=== PATIENT | male | born 1980 | race Caucasian/White ===

== ENCOUNTER 2023-11-16 19:24 | Observation (INO) | payer OTHER, SELFPAY ==
[2023-11-16] VITALS (18 sets, daily range): BP systolic 148–227; BP diastolic 107–162; PULSE 84–124; RESP 15–22; TEMP 36.5–36.9; O2SAT 96–100; BMI 25.9
--- NOTE | 2023-11-16 19:52 | CT_ITS ---
STUDY: CT BRAIN WITHOUT CONTRAST REASON FOR EXAM: Male, 43 years old. headache with elevated bp RADIATION DOSAGE (If Supplied By Facility): CTDIvol = ( 44.99 ) mGy, DLP = ( 914.22 ) mGycm TECHNIQUE: Transaxial CT imaging of the brain was performed without administration of intravenous contrast material. Individualized dose optimization techniques were used for this CT. COMPARISON: No relevant priors. FINDINGS: Normal soft tissue structures. Normal calvarium. Normal size ventricles and extra-axial spaces for the patient''s age. Small areas of slight decreased attenuation along the subcortical white matter at the sylvian fissure junction with external capsule most compatible with microangiopathic disease. Otherwise unremarkable white matter tracts of the cerebral hemispheres. Normal basal ganglia and thalami. Normal brainstem. Normal cerebellum. There is no intracranial hemorrhage. There are no findings of an acute ischemic infarction. Normal visualized paranasal sinuses. CT/Brain/Head without Contrast IMPRESSION: Minor microangiopathic white matter changes, otherwise normal CT brain. Electronically Signed: Christie Camacho MD at 20:43 EST ,
--- NOTE | 2023-11-16 19:56 | EX.ED.VIS.HA ---
HPI History of Present Illness Chief Complaint: Headache Detail of Chief Complaint: Elevated blood pressure. Nausea and vomiting. Informant: patient and spouse/S.O. Onset/Context/Timing Onset: Today and Month(s) Context: Gradual Timing: Intermittent Quality -Headache: Positive for Similar Prior Headaches Current Severity: Moderate Maximum Severity: Moderate Associated Symptoms/Injury Associated Symptoms: Positive for Nausea and Vomiting; Negative for Fever, Sinus Pressure, Numbness, Tingling, Blurred Vision, Photophobia or Visual Loss Injury - ASTORGA: Negative for Direct Trauma, Fall or Assault Narrative Narrative: 43-year-old male has been having headaches for the last 3+ years. Headaches have progressively been getting worse and more frequent or about twice a week now. He has never been told he had hypertension. Today around 630 he had one of his more severe headaches with associated nausea and vomiting and his said he just seems like he was out of it. No recent head trauma. They were treating him over the last several years for postconcussive headaches. He is currently on no medications. He has no other significant medical history. He is on no blood thinners. Prior similar symptoms: Yes Recent Illness/Hospitalization: No PFSH PFSH Medical History Migraine Home Medications NK 11/16/23 [History Last Taken Unknown] Allergy/AdvReac Type Severity Reaction Status Date / Time amoxicillin AdvReac Upset Verified 11/16/23 19:26 Stomach doxycycline AdvReac Upset Verified 11/16/23 19:26 Stomach Surgical History H/O rhinoplasty [place] teeth extracted Social History Smoking Status: Never smoker ROS ROS ED ROS Narrative Headache. Nausea and vomiting. No fever. Review of Systems ROS Unobtainable: Denies due to encephalopathy Constitutional Constitutional ED: Denies chills or fever(s) Eyes Eyes: Denies blurry vision ENT ENT ED: Denies ear pain Cardiovascular Cardiovascular: Denies chest pain or palpitations Respiratory/Chest Respiratory/Chest: Denies cough or dyspnea Gastrointestinal Gastrointestinal: Denies abdominal pain Genitourinary Genitourinary ED: Denies dysuria or hematuria Musculoskeletal Musculoskeletal: Denies arthralgias, back pain, myalgias or neck pain Integumentary Denies abscess or Abrasions Neurologic Neurologic: Reports headache(s); Denies paresthesias or weakness Psychiatric Psychiatric: Denies anxiety or depression Endocrine Endocrinology: Denies polydipsia, polyphagia or polyuria Hematologic/Lymphatic Hematologic/Lymphatic: Denies easy bleeding, easy bruising or lymphadenopathy Allergic/Immunologic Allergic/Immunologic ED: Denies mouth swelling, tongue swelling or urticaria EXAM Physical Exam Narrative Exam Narrative: 43-year-old male initial blood pressure is elevated 227/162. present in the room. H EENT exam pupils round react to light. His motions are intact. No signs of trauma. Neck nontender no meningismus. Able to touch chin to chest. Lungs clear to auscultation bilaterally. Heart regular rhythm rate about 110 no murmur. Chest wall nontender. Abdomen soft nontender. Moving all 4 extremities. Calves are nontender without edema or cords. Neurologically patient is awake and alert. No focal motor deficits. Answering questions following commands. Normal speech. No facial droop. 5 out of 5 blast setter strength. Dorsi plantarflexion intact. Fingertip to nose within normal limits. NIH is 0. Const Vital Signs: 11/16/23 19:27 11/16/23 19:30 11/16/23 19:55 Temperature 97.7 F L Temperature Source Temporal Pulse Rate 124 H Respiratory Rate 16 Blood Pressure 227/162 H 222/156 H Blood Pressure Mean 183 178 Blood Pressure Source Pulse Ox 100 Oxygen Delivery Method Room Air 11/16/23 20:01 11/16/23 21:01 11/16/23 21:18 Temperature Temperature Source Pulse Rate 90 89 Respiratory Rate 18 Blood Pressure 220/151 H 208/146 H 207/144 H Blood Pressure Mean 174 166 165 Blood Pressure Source Monitor Pulse Ox Oxygen Delivery Method 11/16/23 21:23 11/16/23 21:28 Temperature Temperature Source Pulse Rate Respiratory Rate Blood Pressure 202/131 H 194/122 H Blood Pressure Mean 154 146 Blood Pressure Source Monitor Monitor Pulse Ox Oxygen Delivery Method Positive well nourished and well developed; Negative for obese, cachectic, contractures or unkempt General Appearance ED: well developed and NAD; Negative for unkempt, cachectic, contractures, cyanotic, diaphoretic or pallor Nutritional Appearance: Negative for cachectic or obese HEENT Reports normocephalic and moist mucous membranes; Denies dry mucous membranes atraumatic; Negative for trauma, tenderness, temporal artery tenderness or vesicular rash Face and Sinus: Negative for sinus tenderness Mouth ED: No dry mucous membranes Mouth: No dry mucous membranes Eyes PERRL and EOMs intact bilaterally General Eye ED: Negative for pale conjunctiva, scleral icterus or other Neck no lymphadenopathy, supple, no meningeal signs and no JVD General: Negative for tenderness Resp normal respiratory effort and clear to auscultation bilaterally Effort and Inspection: Negative for retractions Auscultation: Negative for rales, rhonchi or wheezes Cardio regular rate, regular rhythm, S1 normal heart sound, S2 normal heart sound and no murmurs Rate: Negative for bradycardia or tachycardic Rhythm: Negative for abnormal rhythm GI non-tender and non-distended Auscultation: normoactive bowel sounds Palpation: soft; Negative for firm, tender, guarding, rigid, hepatomegaly, splenomegaly, mass or other Back/Spine no CVA tenderness General Back: Negative for CVA tenderness Cervical Spine: Negative for cervical spine tenderness Thoracic Spine / Upper Back: Negative for thoracic spinal tenderness Lumbar Spine / Lower Back: Negative for lumbar spinal tenderness Extremity normal to inspection, full ROM and normal capillary refill General Extremety ED: Negative for edema, tenderness or other findings General Extremity: Negative for edema or other findings Neuro oriented x3, CN's II-XII intact bilaterally and no sensory deficits noted Sensorium / Orientation: awake, alert, oriented to person, oriented to place and oriented to time; Negative for orientation impaired, lethargic or stuporous Coordination / Balance: [id number] test normal Speech: speech normal Motor Exam: strength 5/5 throughout Psych mental status grossly normal Appearance: Negative for unkempt Attitude: No agitated Mood & Affect: Negative for depressed, anxious or tearful Skin General Skin Exam: elasticity normal; Negative for jaundice or pallor Lesions: no lesions Rashes: no rashes Trauma: Negative for abrasion MDM MDM MDM Narrative Medical decision making narrative: 41-year-old male with frequent and progressively worsening headaches over the last 3 years. Today he had an episode of mental status change briefly with nausea and vomiting. CAT scan of his brain screening labs to be obtained. His blood pressure was significantly elevated at 227 / 162 that will be rechecked if it is not coming down we will start him on antihypertensive medications. Patient was given Lopressor IV x 3 without any significant relief to his blood pressure. He was started on nitroprusside drip which is starting to bring his blood pressure down when I spoke to the hospitalist about admission for hypertensive urgency she preferred to be on a nicardipine drip so the drip will be changed. Patient be admitted to the PCU. I discussed his test results with both he and his significant other. History & Record Review Discussion w/independent historian: Patient Additional record(s) reviewed:: No prior records Lab Data Attestation: I reviewed the patient's lab results. Lab results narrative: CBC shows a white count of 14. H&H 15 and 45. Platelets 334. Electrolytes show a gap of 7. BUN of 20 creatinine 1.2. Glucose 142. Troponin 22. Labs: Laboratory Results - last 24 hr 11/16/23 19:50 WBC 14.2 H RBC 5.26 Hgb 15.9 Hct 45.9 MCV 87.3 MCH 30.2 MCHC 34.6 RDW Std Deviation 39.2 RDW Coeff of Alvin 12.3 Plt Count 334 MPV 10.2 Immature Gran % (Auto) 0.400 Neut % (Auto) 88.8 H Lymph % (Auto) 7.1 L [place] % (Auto) 3.5 Eos % (Auto) 0.0 Baso % (Auto) 0.2 Absolute Neuts (auto) 12.6 H Absolute Lymphs (auto) 1.00 Nucleated RBC % 0 Sodium 139 Potassium 4.0 Chloride 107 Carbon Dioxide 25.0 Anion Gap 7 BUN 20 H Creatinine 1.25 Estim Creat Clear Calc 81.99 Est GFR (MDRD) Af Amer 81 Est GFR (MDRD) Non-Af 67 BUN/Creatinine Ratio 16.0 Glucose 142 H Calcium 9.5 Troponin I High Sens 22 Radiography Chest X-Ray - ED: 1 View, Read by ED Physician, Read by Radiologist, Heart, Lungs, Mediastinum, Bony Structures and No Acute Disease Diagnostic Testing: Clinical Impression(s) from Imaging Studies Brain CT 11/16/23 19:52 IMPRESSION: Minor microangiopathic white matter changes, otherwise normal CT brain. Electronically Signed: Christie Camacho MD at 20:43 EST , Chest X-Ray 11/16/23 20:13 IMPRESSION: Trace right basilar atelectasis. Otherwise normal x-ray examination of the chest. Electronically Signed: Christie Camacho MD at 20:40 EST Reading Location ID and State: [facility] / [place] , Service support , Chest x-ray, portable, single view interpreted by myself and radiologist shows no acute abnormality. Normal cardiac silhouette mediastinum. Normal lung quinones. Rhythm Strip Rhythm Strip: Sinus Tach Rate: 112 Ectopy: None EKG Initial EKG: Attestation: I personally reviewed and interpreted this EKG as follows: Interpretation: Sinus Tachycardia Comments: Sinus tachycardia rate of 112 no acute signs of KS or ischemia. No ST elevation or depression. Prior EKG tracings: not available for review Discharge Plan Triage Chief Complaint: Headache ED Provider: Efrain Sanchez Dx/Rx/DC Orders Clinical Impression: Hypertensive urgency, Headache Prescriptions: No Action NK Primary Care Provider: Care Physician,No Primary Referrals: NOT,DEFINED [Non-Staff] - Disposition Disposition: Acute Care Hospital [facility]
[2023-11-16 19:59] LABS: Absolute Neutrophil Count 12.6 X10^3/uL (2.0-7.7); Basophil# 0.03 X10^3/uL; Basophil% 0.2 % (0-1); Hematocrit 45.9 % (40-54); Hemoglobin 15.9 g/dL (13.0-16.5); Lymphocyte % 7.1 % (19-41); Mean Corp Hgb Conc 34.6 g/dL (32-36); Mean Corpuscular Hgb 30.2 pg (27.0-32.0); Mean Corpuscular Volume 87.3 fL (80-94); Mean Platelet Vol. 10.2 fl (6.2-12.0); Monocyte% 3.5 % (0-10); NRBC Flagged by Analyzer 0 % (0-5); Neutrophil % 88.8 % (47-70); Platelet Count 334 K/mm3 (150-450); RBC Distribution Width CV 12.3 % (11.6-14.6); RBC Distribution Width SD 39.2 fl (35.1-43.9); Red Blood Count 5.26 M/mm3 (4.6-6.2); White Blood Count 14.2 K/mm3 (4.4-11.0)
[2023-11-16] MEDS: Ondansetron 4 MG/2 ML Vial IV (20:00)
--- NOTE | 2023-11-16 20:13 | RAD_ITS ---
STUDY: X-RAY CHEST REASON FOR EXAM: Male, 43 years old. chest pain TECHNIQUE: Single AP portable view of the chest. COMPARISON: None. FINDINGS: Possible trace right basilar atelectasis. Otherwise the lungs are clear and expanded. There is no demonstrated pleural abnormality. Normal size heart. Normal mediastinum and aishwarya. Normal visualized pulmonary arteries. Normal visualized aortic arch and descending thoracic aorta. Normal visualized thoracic spine. Normal visualized ribs, clavicles, and shoulders. There is no demonstrated abnormality of the visualized soft tissue structures of the upper abdomen. RAD/Chest 1 View (Portable) IMPRESSION: Trace right basilar atelectasis. Otherwise normal x-ray examination of the chest. Electronically Signed: Christie Camacho MD at 20:40 EST ,
[2023-11-16 20:18] LABS: Anion Gap 7 (5-15); BUN 20 mg/dL (7-18); Calcium,Total 9.5 mg/dL (8.5-10.1); Chloride 107 mmol/L (98-107); Creatinine, Serum 1.25 mg/dL (0.70-1.30); EST Glomerular Filtration Rate 67 mL/min (>60); Est Glom Filt Rate - Afr Amer 81 mL/min (>60); Estimated Creatinine Clearance 81.99 ml/min; Glucose 142 mg/dL (74-106); Sodium Level 139 mmol/L (136-145); Troponin-I HS (w/2H Reflex) 22 pg/mL (3.0-78.0)
[2023-11-16] MEDS: Metoprolol Tartrate 5 MG/5 ML Vial IV ×3 (20:29→21:02)
[2023-11-16] MEDS: Nitroprusside 50 MG in Dextrose 5%-Water (250mL Bag) 248 ML 7.6 MG CONT INF (21:18)
--- NOTE | 2023-11-16 21:41 | ED.RN ---
per Dr Sanchez Hospitalist Dr. Philly Burnett wants sbp 180's and switch to Cardene. Will hold Nitroprusside once Nicardipine available.
[2023-11-16 21:56] LABS: Reflex Troponin-HS? (from REC) Y
[2023-11-16 22:24] LABS: Troponin-I HS 23 pg/mL (3.0-78.0)
[2023-11-16] MEDS: NICARdipine 25 MG in 0.9% Normal Saline (250mL Bag) 240 ML 50 MG CONT INF (22:25)
[2023-11-16 22:28] LABS: Thyroid Stim Hormone (TSH) 0.81 uIU/mL (0.358-3.74)
--- NOTE | 2023-11-16 22:36 | ED.RN ---
2225 maheshride dcd prior to starting cardene.
--- NOTE | 2023-11-16 23:13 | PCM.HP.STD ---
HPI - General General Date of Admission: 11/16/23 Date of Service: 11/17/23 Chief Complaint: Headache HPI Narrative ZOEY MAE, is a 43 M who presented to the emergency department at [facility] with a severe headache. Patient states he has a history of migraines but had not had issues with this in a long time. It sounds like he also has a history of exercise-induced headaches when he was young and playing sports. He had about 5 concussions when he was young from sports and initially attributed his headaches to this. He stated the headaches that he is currently suffering from started in about 2019 and initially he was having them about twice a month but they have become more frequent and he is currently having them 2-3 times a week. He states often they occur on the weekends and midweek on Tuesday. He states they are located on the top of his head and they are sharp and stabbing in nature. He rates the pain as high as 9 out of 10 at times and that is what it was on presentation. He states that exercise still will precipitate a headache that is the same. He has associated nausea and vomiting and states that often when he gets headaches he has multiple bowel movements that are normal in formation. He states he came to the hospital today because he had some shaking that occurred diffusely throughout his body while he was having a headache. It sounds as if the shaking was rhythmic bilateral upper and lower extremities and witnessed by his . He reported that his told him that he did not respond with this happened however he was able to get the shaking to stop and then was fully responsive. He had no biting of his tongue, loss of bowel or bladder or any signs of postictal state. He currently states his headache is better since we have improved control of his blood pressure and now rates his headache as 3 out of 10. We did discuss his blood pressure as an outpatient and he states typically his systolics run in the 120s. 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 He denies any substance use. He states that the headaches do not particularly seem to be associated with any alcohol use in fact he tried not drinking for an entire month and he was still getting headaches fairly consistently. Vital signs on presentation demonstrated temperature of 97.7, initial heart rate was 124 with repeat at 90 bpm, blood pressure was 127/162 and did not improve with IV metoprolol, respiratory was 16 oxygen saturations are 100% room air. CBC showed a mild leukocytosis with a white count of 14.2 and a left shift however he did appear somewhat dehydrated. Chemistry panel revealed normal electrolytes with a mildly elevated BUN at 20 and a serum creatinine of 1.25. Baseline is unknown. Blood glucose was 142 and he is not a diabetic but this was nonfasting. Initial troponin was 22. I obtained a TSH and a cortisol both of which were normal. A CT of his brain was performed and demonstrated minor microangiopathic white matter changes and an otherwise normal CT of the brain. Chest x-ray demonstrated trace right basilar atelectasis with an otherwise normal echo x-ray of the chest. EKG is consistent with LVH. Patient had sinus tachycardia with normal intervals and no ST-T wave changes. There were no previous EKGs to compare. As noted above, he was given IV metoprolol x 3 in the emergency department Without any significant improvement in his blood pressure and he was therefore started on a Cardene drip. [facility] Medical History Migraine Home Medications NK 11/16/23 [History Last Taken Unknown] Allergy/AdvReac Type Severity Reaction Status Date / Time amoxicillin AdvReac Upset Verified 11/16/23 19:26 Stomach doxycycline AdvReac Upset Verified 11/16/23 19:26 Stomach Family History (Updated 11/17/23 @ 01:[address] Inez Burnett DO) Other Diabetes Hypertension Surgical History H/O rhinoplasty Umpire teeth extracted Social History (Updated 11/17/23 @ 01:[address] Inez Burnett DO) household members: family housing: house current occupation: Chiropractor Smoking Status: Never smoker alcohol intake: current alcohol intake frequency: a few times a month substance use type: does not use ROS Constitutional Constitutional: Denies anorexia, change in weight, chills, fatigue, fever(s), malaise, night sweats, weakness or other Eyes Eyes: Reports blurry vision; Denies change in eye color, change in vision, discharge from eye(s), double vision, erythema, eye pain, loss of vision or other ENT HEENT: Reports headache(s); Denies abnormal hearing, dysphagia, ear pain, epistaxis, hearing loss, nasal congestion, nasal discharge, post nasal drip, sinus pressure, sore throat or other Cardiovascular Cardiovascular: Denies chest pain, claudication, dyspnea on exertion, edema, lightheadedness, orthopnea, palpitations, paroxysmal nocturnal dyspnea, rapid heart rate, syncope or other Respiratory/Chest Respiratory/Chest: Denies cough, dyspnea, excessive phlegm production, hemoptysis, productive cough, shortness of breath at rest, shortness of breath with exertion, wheezing or other Gastrointestinal Gastrointestinal: Reports nausea, vomiting and other Details: Frequent bowel movements when has headache but not diarrhea or loose stool ; Denies abdominal pain, coffee ground emesis, constipation, diarrhea, dyspepsia, hematemesis, hematochezia, loose stools or melena Genitourinary Genitourinary: Denies burning urination, difficulty urinating, dysuria, hematuria, nocturia, urinary frequency, urinary hesitancy, urinary incontinence, urinary urgency or other Neurologic Neurologic: Reports headache(s) and other Details: Full body shaking with complete awareness Endocrine Endocrinology: Denies change in body appearance, cold intolerance, excessive sweating, heat intolerance, polydipsia, polyuria or other Hematologic/Lymphatic Hematologic/Lymphatic: Denies anemia, easy bleeding, easy bruising, lymphadenopathy or other Allergic/Immunologic Allergic/Immunologic: Denies rhinitis, hives, eczemia, asthma or other Vital Signs Vital Signs Vital Signs: 11/16/23 19:27 11/16/23 19:30 11/16/23 19:55 Temperature 97.7 F L Temperature Source Temporal Pulse Rate 124 H Respiratory Rate 16 Blood Pressure 227/162 H 222/156 H Blood Pressure Mean 183 178 Blood Pressure Source Pulse Ox 100 Oxygen Delivery Method Room Air 11/16/23 20:01 11/16/23 21:01 11/16/23 21:18 Temperature Temperature Source Pulse Rate 90 89 Respiratory Rate 18 Blood Pressure 220/151 H 208/146 H 207/144 H Blood Pressure Mean 174 166 165 Blood Pressure Source Monitor Pulse Ox Oxygen Delivery Method 11/16/23 21:23 11/16/23 21:28 11/16/23 21:33 Temperature Temperature Source Pulse Rate Respiratory Rate Blood Pressure 202/131 H 194/122 H 181/133 H Blood Pressure Mean 154 146 149 Blood Pressure Source Monitor Monitor Monitor Pulse Ox Oxygen Delivery Method 11/16/23 21:38 11/16/23 21:42 11/16/23 21:43 Temperature 98.0 F Temperature Source Pulse Rate 89 88 Respiratory Rate 15 18 Blood Pressure 169/119 H 169/119 H 173/113 H Blood Pressure Mean 135 135 133 Blood Pressure Source Monitor Pulse Ox 98 96 Oxygen Delivery Method Room Air 11/16/23 22:06 11/16/23 22:25 11/16/23 22:30 Temperature 98.0 F Temperature Source Temporal Pulse Rate 99 84 89 Respiratory Rate 18 18 16 Blood Pressure 163/109 H 162/116 H 179/114 H Blood Pressure Mean 127 131 135 Blood Pressure Source Pulse Ox 96 Oxygen Delivery Method Room Air 11/16/23 22:35 11/16/23 23:01 Temperature Temperature Source Pulse Rate 89 100 Respiratory Rate 16 18 Blood Pressure 148/121 H 156/107 H Blood Pressure Mean 130 123 Blood Pressure Source Pulse Ox 98 Oxygen Delivery Method Room Air Weight Weight: 84.504 kg Body Mass Index (BMI) 25.9 Physical Exam Const alert, oriented x3, no apparent distress, average body habitus, healthy appearing and well nourished Constitutional Narrative: Very pleasant, middle-aged, white male, sitting up in bed, appears comfortable and nontoxic General Appearance: cooperative HEENT normocephalic, head/scalp atraumatic, hearing grossly normal bilaterally and moist oral mucous membranes HEENT Narrative: Mallampati 2, no thrush Eyes PERRL, EOMs intact bilaterally and conjunctivae normal Eyes Narrative: No scleral icterus Neck no lymphadenopathy and supple Neck Narrative: Trachea midline, no thyroid enlargement or nodularity noted Resp normal respiratory effort, no retractions, no use of accessory muscles and clear to auscultation bilaterally Auscultation: Negative for rales, rhonchi or wheezes Cardio regular rate, regular rhythm, S1 normal heart sound, S2 normal heart sound, no murmurs, no rub and no clicks; Negative for no gallops Cardio Narrative: Patient with positive S4 GI normal to inspection, nondistended, normoactive bowel sounds, soft to palpation and non-tender Extremity no clubbing, cyanosis or edema Extremity Narrative: Pedal pulses are 2+, radial pulses are 2+ Neuro oriented x3, moves all extremities and no focal motor deficits Speech: speech normal Psych affect normal Psych Narrative: Eye contact is good, patient interacts appropriately Results Lab / Micro Data Attestation: I reviewed the patient's lab results. 11/16/23 19:50 11/16/23 19:50 Labs: Laboratory Results - last 24 hr 11/16/23 19:50: WBC 14.2 H, RBC 5.26, Hgb 15.9, Hct 45.9, MCV 87.3, MCH 30.2, MCHC 34.6, RDW Std Deviation 39.2, RDW Coeff of Alvni 12.3, Plt Count 334, MPV 10.2, Immature Gran % (Auto) 0.400, Neut % (Auto) 88.8 H, Lymph % (Auto) 7.1 L, [place] % (Auto) 3.5, Eos % (Auto) 0.0, Baso % (Auto) 0.2, Absolute Neuts (auto) 12.6 H, Absolute Lymphs (auto) 1.00, Nucleated RBC % 0, Sodium 139, Potassium 4.0, Chloride 107, Carbon Dioxide 25.0, Anion Gap 7, BUN 20 H, Creatinine 1.25, Estim Creat Clear Calc 81.99, Est GFR (MDRD) Af Amer 81, Est GFR (MDRD) Non-Af 67, BUN/Creatinine Ratio 16.0, Glucose 142 H, Calcium 9.5, Troponin I High Sens 22, TSH 0.81 11/16/23 22:05: Troponin I High Sens 23 11/16/23 22:22: Cortisol 13.30 Rhythm Strip Rhythm Strip: Sinus Tach Rate: 112 Ectopy: None Imaging Radiology Impression Brain CT 11/16/23 19:52 IMPRESSION: Minor microangiopathic white matter changes, otherwise normal CT brain. Electronically Signed: Christie Camacho MD at 20:43 EST , Chest X-Ray 11/16/23 20:13 IMPRESSION: Trace right basilar atelectasis. Otherwise normal x-ray examination of the chest. Electronically Signed: Christie Camacho MD at 20:40 EST , Assessment & Plan Assessment/Plan (1) Headache: (2) Hypertensive urgency: (3) Leukocytosis: (4) Hyperglycemia: PLAN: Plan Severe headache -Patient has been having significant headaches that have slowly been progressing and escalating since 2019 -Has associated nausea and vomiting and multiple bowel movements -Associated with a shaking episode today -Check EEG -Patient reports headache was 9 out of 10 on presentation and now 3 out of 10 -Check MRI with and without contrast of the brain -Check MRA of the brain -As needed Tylenol available -Will consult neurology for assistance with these as they have been escalating -Unsure if his blood pressure elevation is due to his headaches or have his headaches are related to his blood pressure elevation Hypertensive urgency -Blood pressure on presentation was 227/162 -Cardene drip was initiated the emergency department-will continue with a goal blood pressure of around 180-200 through the night -At 6 AM we will start losartan 50 mg and stop Cardene drip 30 minutes later to maintain blood pressure systolic around 180 -Unclear if this is the cause of his headache however his headache is improved currently with improved blood pressure control -TSH and cortisol are normal -Check echocardiogram -No significant family history of resistant hypertension or otherwise -UA is pending -Imaging as above -Will add as needed hydralazine to be utilized after Cardene drip is discontinued -To begin for systolic greater than 190 -Check tox screen Hyperglycemia -Blood sugar 140 on presentation -Check hemoglobin A1c Leukocytosis -Highly suspect reactive and may be related to a bit of dehydration -Repeat CBC in a.m. DVT prophylaxis -Enoxaparin subcu daily CODE STATUS Full code Charges/Coding Visit Charges Inpatient E&M: 15888 Init Hosp L2
--- NOTE | 2023-11-16 23:17 | ED.RN ---
report called to Margarita Jeffries.
[2023-11-17] VITALS (34 sets, daily range): BP systolic 128–180; BP diastolic 89–118; PULSE 70–108; RESP 13–20; TEMP 36.6–36.9; O2SAT 95–100; BMI 25.9
[2023-11-17 00:54] LABS: Bacteria 0 SEEN /hpf (None Seen); Mucous, Urine 0 SEEN /hpf (<or=2+); Red Blood Cells-Urine 0 SEEN /hpf (0-5); Squamous Epithelial Cells - UA 0 SEEN /hpf (0-5); White Blood Cells 0 SEEN /hpf (0-5)
[2023-11-17 01:00] LABS: Color, Urine Yellow (Yellow); Glucose, Dipstick Normal (Normal); Ketone-Dipstick 15 mg/dl (Negative); Leukocyte Esterase-Dipstick Negative /ul (Negative); Nitrite-Dipstick Negative (Negative); Occult Blood-Urine Negative /ul (Negative); Protein-Dipstick 15 mg/dl (Negative); Urine Bilirubin Dipstick Negative (Negative); Urine Clarity Clear (Clear); Urine Urobilinogen Normal (Normal)
--- NOTE | 2023-11-17 01:02 | MRI_ITS ---
STUDY: MRI BRAIN WITH AND WITHOUT CONTRAST REASON FOR EXAM: Male, 43 years old. Headache TECHNIQUE: Standardized multiplanar fat and water weighted pulse sequences were obtained. iv clariscan 17 cc was administered for the contrast portion of the examination. COMPARISON: None. FINDINGS: Normal size of the ventricles and extra-axial spaces for the patient''s age. Normal white matter tracts of the supratentorial brain. There is no evidence for recent intracranial ischemia or other cause of cytotoxic edema on diffusion weighted imaging (DWI). Normal T2* images of the brain without demonstrated susceptibility artifact. There is no demonstrated hemosiderin stain. Normal bilateral basal ganglia. Normal thalami. There is no extra-axial fluid accumulation. Normal flow voids within the major intracranial circulation suggesting patency by spin echo criteria. Normal venous enhancement. There is no enhancing intra-axial or extra-axial abnormality. Normal sella turcica, pituitary gland, infundibular stalk, optic chiasm and hypothalamus. Normal tectal plate and pineal gland. Normal midbrain, naveen and medulla. Normal cerebellum. Normal basal cisterns. Normal bilateral temporal bones. Normal bilateral internal auditory canals. No demonstrated orbital abnormality, within the constraints of a routine brain study. Normal visualized paranasal sinuses. Normal calvarium and skull base. Normal visualized soft tissue structures. Normal visualized upper cervical spine. MRI/Brain W/WO Contrast IMPRESSION: No evidence of acute intracranial bleed, mass or ischemia. No evidence of abnormal enhancement. Electronically Signed: Jr Chan DO at 16:47 EST ,
--- NOTE | 2023-11-17 01:02 | MRI_ITS ---
STUDY: MRA OF THE HEAD WITHOUT CONTRAST REASON FOR EXAM: Male, 43 years old. severe headache TECHNIQUE: 3-D [id number] (TOF) imaging was performed with MIPs. The study was performed unenhanced. COMPARISON: None. FINDINGS: Normal bilateral petrous carotid arteries. Normal right cavernous carotid artery with a normal supraclinoid bifurcation. Normal left cavernous carotid artery with a normal supraclinoid bifurcation. Normal right A1 segments of the anterior cerebral artery. Normal left A1 segments of the anterior cerebral artery. Normal intact anterior communicating artery (ACOM). Normal bilateral A2 segments of the anterior cerebral arteries. Normal right M1 and M2 segments of the middle cerebral arteries, with a normal M1 bifurcation. Normal left M1 and M2 segments of the middle cerebral arteries, with a normal M1 bifurcation. Normal right posterior communicating artery (PCOM). Normal left posterior communicating artery (PCOM). Normal bilateral vertebral arteries. Normal basilar artery with a normal basilar bifurcation. The visualized bilateral superior cerebellar (SCA) arteries are normal. Normal bilateral P1, P2 and visualized P3 segments of the posterior cerebral arteries. There is no demonstrated aneurysm of the lumbee of Marie. There is no major vessel occlusion or hemodynamically significant stenosis. There is no demonstrated abnormality of the visualized brain. MRI/MRA Head ONLY without Contrast IMPRESSION: No evidence of significant steno-occlusive disease or aneurysm. Electronically Signed: Jr Chan DO at 16:48 EST ,
--- NOTE | 2023-11-17 01:14 | ECHOD_ITS ---
Reason For Study: HYPERTENSION (NEW ONSET) Procedure This was a 2D Doppler, Color Flow transthoracic echocardiogram. Exam performed portable in ICU/CCU. Left Ventricle Normal LV size. Mild concentric left ventricular hypertrophy. Apical false tendon noted. Left ventricular systolic function is normal. The estimated ejection fraction is 60 %. No evidence for diastolic dysfunction. No regional wall motion abnormalities noted. Right Ventricle Normal RV size. Normal systolic function. Atria Normal left atrium. Normal right atrium. Mitral Valve The mitral valve is structurally normal. No prolapse or stenosis seen. Trivial mitral valve insufficiency. Tricuspid Valve Normal tricuspid valve. Trivial tricuspid valve insufficiency. Unable to estimate RV systolic pressure due to insufficient tricuspid regurgitant envelope. Aortic Valve Trisinus/trileaflet aortic valve. Pulmonic Valve Normal pulmonic valve. Trivial pulmonic valve insufficiency. Great Vessels Mildly dilated aortic root. Pericardium/Pleural No pericardial effusion. MMode/2D Measurements & Calculations LVIDd: 4.6 cm IVSd: 1.1 cm Ao root diam: 4.2 cm LVIDs: 3.0 cm LVPWd: 1.1 cm RVDd: 3.2 cm FS: 36.0 % LAV(MOD-bp): 50.0 ml LVAd ap4: 38.4 cm2 LVAd ap2: 28.3 cm2 LAV(MOD-bp) Indexed: 24.5 ml/m2 LVLd ap4: 8.5 cm LVLd ap2: 8.3 cm LAV(MOD-sp2): 52.0 ml EDV(MOD-sp4): 140.4 ml EDV(MOD-sp2): 81.6 ml LAV(MOD-sp4): 40.2 ml EDV(sp4-el): 147.0 ml EDV(sp2-el): 81.4 ml LVAs ap4: 19.8 cm2 LVAs ap2: 15.1 cm2 LVLs ap4: 6.4 cm LVLs ap2: 6.8 cm ESV(MOD-sp4): 50.3 ml ESV(MOD-sp2): 30.8 ml ESV(sp4-el): 51.8 ml ESV(sp2-el): 28.3 ml EF(MOD-sp4): 64.2 % EF(MOD-sp2): 62.3 % EF(sp4-el): 64.8 % SV(MOD-sp4): 90.2 ml SV(MOD-sp2): 50.8 ml SV(sp4-el): 95.2 ml LA dimension(2D): 4.1 cm LA A4 area: 14.4 cm2 RA A4 area: 13.0 cm2 TAPSE: 2.4 cm Time Measurements MV dec time: 0.22 sec Doppler Measurements & Calculations MV E max joe: 55.7 cm/sec Lat Peak E' Joe: 9.0 cm/sec Med Peak E' Joe: 8.5 cm/sec MV A max joe: 53.8 cm/sec E/E' lat: 6.2 E/E' med: 6.6 MV E/A: 1.0 MV V2 max: 68.9 cm/sec MV P1/2t max joe: 68.9 cm/sec Ao V2 max: 98.2 cm/sec MV max P.9 mmHg MV P1/2t: 59.5 msec Ao max P.9 mmHg MV V2 mean: 36.8 cm/sec MV dec slope: 338.8 cm/sec2 Ao V2 mean: 78.2 cm/sec MV mean P.66 mmHg Ao mean P.7 mmHg MV V2 VTI: 17.9 cm MVA(P1/2t): 3.7 cm2 Ao V2 VTI: 22.3 cm AV (velocity ratio): 0.80 LV V1 max: 97.0 cm/sec PA V2 max: 88.2 cm/sec LV V1 max P.8 mmHg PA V2 mean: 64.4 cm/sec LV V1 mean P.1 mmHg LV V1 mean: 69.2 cm/sec LV V1 VTI: 17.8 cm ECHO/Echo Complete Interpretation Summary The estimated ejection fraction is 60 %. No evidence for diastolic dysfunction. Mild concentric left ventricular hypertrophy. Mildly dilated aortic root. Structally normal valves. Ordering Physician: Inez Burnett Referring Physician: NO PCP Performed By: Bianca Garcia, KAYLIE, RVT
[2023-11-17] MEDS: Acetaminophen 325 MG Tablet 650 MG PO (02:05)
[2023-11-17 02:16] LABS: Absolute Lymphocyte Count 2.56 X10^3/uL (0.83-4.51); Absolute Neutrophil Count 8.9 X10^3/uL (2.0-7.7); Basophil# 0.05 X10^3/uL; Basophil% 0.4 % (0-1); Eosinophil# 0.07 X10^3/uL; Eosinophils% 0.5 % (0-5); Hemoglobin 14.2 g/dL (13.0-16.5); Lymphocyte # 2.56 X10^3/ul (0.83-4.51); Lymphocyte % 19.8 % (19-41); Mean Corp Hgb Conc 34.6 g/dL (32-36); Mean Corpuscular Hgb 30.2 pg (27.0-32.0); Mean Corpuscular Volume 87.2 fL (80-94); Mean Platelet Vol. 9.8 fl (6.2-12.0); Monocyte# 1.33 X10^3/uL; Monocyte% 10.3 % (0-10); NRBC Flagged by Analyzer 0 % (0-5); Neutrophil # 8.87 X10^3/uL (2.7-7.7); Neutrophil % 68.8 % (47-70); Platelet Count 267 K/mm3 (150-450); RBC Distribution Width CV 12.3 % (11.6-14.6); RBC Distribution Width SD 39.4 fl (35.1-43.9); White Blood Count 12.9 K/mm3 (4.4-11.0)
[2023-11-17 02:34] LABS: Troponin-I HS 24 pg/mL (3.0-78.0)
[2023-11-17 02:39] LABS: ALB/GLOB Ratio 1.1 RATIO (0.9-2.4); AST(SGOT) 12 U/L (15-37); Alanine Aminotransfer ALT/SGPT 32 U/L (16-61); Albumin, Serum 3.9 g/dL (3.2-5.0); Alkaline Phosphatase 87 U/L (45-117); Anion Gap 6 (5-15); BUN 18 mg/dL (7-18); BUN/Creat Ratio 18.1 RATIO (10-20); Calcium,Total 8.6 mg/dL (8.5-10.1); Chloride 108 mmol/L (98-107); Creatinine, Serum 0.99 mg/dL (0.70-1.30); EST Glomerular Filtration Rate 87 mL/min (>60); Est Glom Filt Rate - Afr Amer 106 mL/min (>60); Estimated Creatinine Clearance 103.53 ml/min; Globulin 3.4 g/dL (2.2-4.2); Glucose 125 mg/dL (74-106); Magnesium 2.3 mg/dL (1.6-2.6); Phosphorus 2.5 mg/dL (2.5-4.9); Potassium 3.3 mmol/L (3.5-5.1); Protein, Total 7.3 g/dL (6.4-8.2); Sodium Level 140 mmol/L (136-145)
[2023-11-17 03:02] LABS: Amphetamine Urine VISTA NEGATIVE (<1000 ng/mL); Barbiturate Urine VISTA NEGATIVE (< 200 ng/mL); Benzodiazepine Urine VISTA NEGATIVE (< 200 ng/mL); Cocaine Urine VISTA NEGATIVE (< 300 ng/mL); Ecstacy Urine VISTA NEGATIVE (< 500 ng/mL); Methadone Urine VISTA NEGATIVE (< 300 ng/mL); PCP Urine VISTA NEGATIVE (< 25 ng/mL); THC Urine VISTA NEGATIVE (< 50 ng/mL); Vista UDS pH Range 6
[2023-11-17] MEDS: Losartan Potassium 50 MG Tablet PO ×2 (06:32→09:04)
[2023-11-17] MEDS: Potassium Chloride Oral Tablet 20 MEQ 40 MEQ PO (06:32)
[2023-11-17 08:57] LABS: Hemoglobin A1c 4.9 % (3.8-5.6)
[2023-11-17] MEDS: amLODIPine 10 MG Tablet PO (09:03)
[2023-11-17] MEDS: hydroCHLOROthiazide 25 MG Tablet PO (09:04)
--- NOTE | 2023-11-17 12:23 | CASEMGMT ---
DONN ESCALERA Assessment Face to Face with patient for initial transition planning/care coordination assessment. DONN ESCALERA introduced self and role at [facility], pt voices understanding. Pt is A&Ox4 and is resting comfortably in bed and is calm. Pt at bedside. Care providers, pharmacy, and demographics verified. Admitting dx: Severe HTN/ HTN Urgency LACE Strata: 1 PCP: No PCP, list provided to pt Specialists: Ye Koroma (Dermatology) Preferred Pharmacy: [facility] in [place] Insurance: MMO Prescription Benefit: Pt is unsure LNOK: Eva Dow (W) Living Arrangements: Pt lives with his and 3 kids (age 10,12, and 15) in a private single story home with a BM with handrails with 3 steps to enter with no issues. ADLs/IADLs: Ind Transportation: Pt and pt drive DME: Denies HHC/SNF: Denies Pt?s goal: Home with family Plan: Pt is to undergo an MRI(B), EEG, and have Neurology consulted. Pt denies SNF, HHC, or outpt therapy needs. Pt is on RA now. Pt denies any additional needs at this time. Pt educated to f/u with CM if needed. Rachna Srivastava RN, CM
--- NOTE | 2023-11-17 13:44 | CON.PCM.NE_ITS ---
Assessment and Plan: Neuro Assessment/Plan ZOEY MAE is a 43 M , being evaluated by Teleneurology for headaches that has been getting worse .He describe his headache as stabbing pain at top of head followed by nausea with no light or sound sensitivity. He denies positional component to headache .Headache gets worse with bowel movement or exercise. He has not tried any preventive medications in the past. He denies double vision, focal weakness, numbness , tingling, slurred speech or dysarthria. Diagnosis: Tension type headache Plan: Start Amytriptyline 25 mg for one week followed by 50 mg for following week followed by 75 mg thereafter nightly PT neck MRI brain w/o contrast F/p in neurology clinic in 6 weeks I personally attended this patient and spent a total time of 50 minutes evaluating this patient including clinical assessment, review of chart, medical history imaging, and determining appropriate treatment and workup. Swati Romero MD [facility] ,Neurology Department HPI Consult Data Date of Consult: 11/17/23 HPI Narrative HPI Narrative: ZOEY MAE, is a 43 M who presents with high blood pressure and headache. He has history of headache since Sep 2020 which has becoming more frequent recently .He describe his headache as stabbing pain at top of head followed by nausea with no light or sound sensitivity. He denies positional component to headache .Headache gets worse with bowel movement or exercise. He has not tried any preventive medications in the past. He denies double vision, focal weakness, numbness , tingling, slurred speech or dysarthria. [facility] Medical History Migraine Home Medications NK 11/16/23 [History Last Taken Unknown] Allergy/AdvReac Type Severity Reaction Status Date / Time amoxicillin AdvReac Upset Verified 11/16/23 19:26 Stomach doxycycline AdvReac Upset Verified 11/16/23 19:26 Stomach Family History (Updated 11/17/23 @ 01:[address] Inez Burnett DO) Other Diabetes Hypertension Surgical History H/O rhinoplasty [place] teeth extracted Social History (Updated 11/17/23 @ 01:[address] Inez Burnett DO) household members: family housing: house current occupation: Chiropractor Smoking Status: Never smoker alcohol intake: current alcohol intake frequency: a few times a month substance use type: does not use Vital Signs Vital Signs Vital Signs: 11/16/23 19:27 11/16/23 19:30 11/16/23 19:55 Temperature 97.7 F L Temperature Source Temporal Pulse Rate 124 H Respiratory Rate 16 Respiratory Effort Respiratory Depth Respiratory Pattern Blood Pressure 227/162 H 222/156 H Blood Pressure [BP] Blood Pressure Mean 183 178 Blood Pressure Mean [BP] Blood Pressure Source Blood Pressure Source [BP] Blood Pressure Position Blood Pressure Position [BP] Blood Pressure Location Blood Pressure Location [BP] Pulse Ox 100 Oxygen Delivery Method Room Air 11/16/23 20:01 11/16/23 21:01 11/16/23 21:18 Temperature Temperature Source Pulse Rate 90 89 Respiratory Rate 18 Respiratory Effort Respiratory Depth Respiratory Pattern Blood Pressure 220/151 H 208/146 H 207/144 H Blood Pressure [BP] Blood Pressure Mean 174 166 165 Blood Pressure Mean [BP] Blood Pressure Source Monitor Blood Pressure Source [BP] Blood Pressure Position Blood Pressure Position [BP] Blood Pressure Location Blood Pressure Location [BP] Pulse Ox Oxygen Delivery Method 11/16/23 21:23 11/16/23 21:28 11/16/23 21:33 Temperature Temperature Source Pulse Rate Respiratory Rate Respiratory Effort Respiratory Depth Respiratory Pattern Blood Pressure 202/131 H 194/122 H 181/133 H Blood Pressure [BP] Blood Pressure Mean 154 146 149 Blood Pressure Mean [BP] Blood Pressure Source Monitor Monitor Monitor Blood Pressure Source [BP] Blood Pressure Position Blood Pressure Position [BP] Blood Pressure Location Blood Pressure Location [BP] Pulse Ox Oxygen Delivery Method 11/16/23 21:38 11/16/23 21:42 11/16/23 21:43 Temperature 98.0 F Temperature Source Pulse Rate 89 88 Respiratory Rate 15 18 Respiratory Effort Respiratory Depth Respiratory Pattern Blood Pressure 169/119 H 169/119 H 173/113 H Blood Pressure [BP] Blood Pressure Mean 135 135 133 Blood Pressure Mean [BP] Blood Pressure Source Monitor Blood Pressure Source [BP] Blood Pressure Position Blood Pressure Position [BP] Blood Pressure Location Blood Pressure Location [BP] Pulse Ox 98 96 Oxygen Delivery Method Room Air 11/16/23 22:06 11/16/23 22:25 11/16/23 22:30 Temperature 98.0 F Temperature Source Temporal Pulse Rate 99 84 89 Respiratory Rate 18 18 16 Respiratory Effort Respiratory Depth Respiratory Pattern Blood Pressure 163/109 H 162/116 H 179/114 H Blood Pressure [BP] Blood Pressure Mean 127 131 135 Blood Pressure Mean [BP] Blood Pressure Source Blood Pressure Source [BP] Blood Pressure Position Blood Pressure Position [BP] Blood Pressure Location Blood Pressure Location [BP] Pulse Ox 96 Oxygen Delivery Method Room Air 11/16/23 22:35 11/16/23 23:01 11/16/23 23:30 Temperature 98.5 F Temperature Source Temporal Pulse Rate 89 100 102 H Respiratory Rate 16 18 22 H Respiratory Effort Respiratory Depth Respiratory Pattern Blood Pressure 148/121 H 156/107 H 167/115 H Blood Pressure [BP] Blood Pressure Mean 130 123 132 Blood Pressure Mean [BP] Blood Pressure Source Monitor Blood Pressure Source [BP] Blood Pressure Position Semi-Fowlers Blood Pressure Position [BP] Blood Pressure Location Right Arm Blood Pressure Location [BP] Pulse Ox 98 98 Oxygen Delivery Method Room Air Room Air 11/17/23 00:00 11/17/23 00:00 11/17/23 00:00 Temperature 98.3 F Temperature Source Temporal Pulse Rate 100 100 Respiratory Rate 18 14 Respiratory Effort Normal Non-Labored Respiratory Depth Normal Respiratory Pattern Normal Blood Pressure 162/108 H 162/108 H Blood Pressure [BP] Blood Pressure Mean 126 126 Blood Pressure Mean [BP] Blood Pressure Source Monitor Monitor Blood Pressure Source [BP] Blood Pressure Position Semi-Fowlers Semi-Fowlers Blood Pressure Position [BP] Blood Pressure Location Left Arm Left Arm Blood Pressure Location [BP] Pulse Ox 99 99 Oxygen Delivery Method Room Air Room Air Room Air 11/16/23 23:30 11/17/23 00:15 11/17/23 00:30 Temperature Temperature Source Pulse Rate 101 H 100 108 H Respiratory Rate 15 Respiratory Effort Respiratory Depth Respiratory Pattern Blood Pressure 167/115 H 157/109 H 180/118 H Blood Pressure [BP] Blood Pressure Mean 132 125 138 Blood Pressure Mean [BP] Blood Pressure Source Monitor Monitor Monitor Blood Pressure Source [BP] Blood Pressure Position Semi-Fowlers Semi-Fowlers Semi-Fowlers Blood Pressure Position [BP] Blood Pressure Location Left Arm Left Arm Left Arm Blood Pressure Location [BP] Pulse Ox 99 Oxygen Delivery Method Room Air 11/17/23 00:45 11/17/23 01:00 11/16/23 23:45 Temperature Temperature Source Pulse Rate 95 100 101 H Respiratory Rate 14 15 Respiratory Effort Respiratory Depth Respiratory Pattern Blood Pressure 148/98 H 162/104 H 160/111 H Blood Pressure [BP] Blood Pressure Mean 114 123 127 Blood Pressure Mean [BP] Blood Pressure Source Monitor Monitor Monitor Blood Pressure Source [BP] Blood Pressure Position Semi-Fowlers Semi-Fowlers Semi-Fowlers Blood Pressure Position [BP] Blood Pressure Location Left Arm Left Arm Left Arm Blood Pressure Location [BP] Pulse Ox 97 98 Oxygen Delivery Method Room Air Room Air 11/17/23 00:00 11/17/23 00:15 11/17/23 00:30 Temperature 98.5 F Temperature Source Temporal Pulse Rate 102 H 100 108 H Respiratory Rate 14 16 16 Respiratory Effort Respiratory Depth Respiratory Pattern Blood Pressure 162/108 H 157/109 H 180/118 H Blood Pressure [BP] Blood Pressure Mean 126 125 138 Blood Pressure Mean [BP] Blood Pressure Source Monitor Monitor Monitor Blood Pressure Source [BP] Blood Pressure Position Semi-Fowlers Semi-Fowlers Semi-Fowlers Blood Pressure Position [BP] Blood Pressure Location Left Arm Left Arm Left Arm Blood Pressure Location [BP] Pulse Ox 99 99 99 Oxygen Delivery Method Room Air Room Air Room Air 11/17/23 02:00 11/17/23 02:15 11/17/23 02:30 Temperature Temperature Source Pulse Rate 95 92 87 Respiratory Rate 15 Respiratory Effort Respiratory Depth Respiratory Pattern Blood Pressure 138/91 H 142/98 H 138/98 H Blood Pressure [BP] Blood Pressure Mean 106 112 111 Blood Pressure Mean [BP] Blood Pressure Source Monitor Monitor Monitor Blood Pressure Source [BP] Blood Pressure Position Semi-Fowlers Semi-Fowlers Semi-Fowlers Blood Pressure Position [BP] Blood Pressure Location Left Arm Left Arm Left Arm Blood Pressure Location [BP] Pulse Ox 99 Oxygen Delivery Method Room Air 11/17/23 04:00 11/17/23 02:45 11/17/23 03:00 Temperature Temperature Source Pulse Rate 90 91 Respiratory Rate 13 Respiratory Effort Normal Non-Labored Respiratory Depth Normal Respiratory Pattern Normal Blood Pressure 140/100 H 131/94 H Blood Pressure [BP] Blood Pressure Mean 113 106 Blood Pressure Mean [BP] Blood Pressure Source Monitor Monitor Blood Pressure Source [BP] Blood Pressure Position Semi-Fowlers Semi-Fowlers Blood Pressure Position [BP] Blood Pressure Location Left Arm Left Arm Blood Pressure Location [BP] Pulse Ox 97 Oxygen Delivery Method Room Air Room Air 11/17/23 04:00 11/17/23 05:00 11/17/23 06:00 Temperature 98.1 F Temperature Source Temporal Pulse Rate 88 86 87 Respiratory Rate 15 16 19 H Respiratory Effort Respiratory Depth Respiratory Pattern Blood Pressure 133/91 H 132/93 H 131/97 H Blood Pressure [BP] Blood Pressure Mean 105 106 108 Blood Pressure Mean [BP] Blood Pressure Source Monitor Monitor Monitor Blood Pressure Source [BP] Blood Pressure Position Semi-Fowlers Semi-Fowlers Semi-Fowlers Blood Pressure Position [BP] Blood Pressure Location Left Arm Left Arm Left Arm Blood Pressure Location [BP] Pulse Ox 97 97 96 Oxygen Delivery Method Room Air Room Air Room Air 11/17/23 06:15 11/17/23 06:30 11/17/23 06:45 Temperature Temperature Source Pulse Rate 85 89 94 Respiratory Rate Respiratory Effort Respiratory Depth Respiratory Pattern Blood Pressure 136/89 H 139/90 H 130/103 H Blood Pressure [BP] Blood Pressure Mean 104 106 112 Blood Pressure Mean [BP] Blood Pressure Source Monitor Monitor Monitor Blood Pressure Source [BP] Blood Pressure Position Semi-Fowlers Semi-Fowlers Semi-Fowlers Blood Pressure Position [BP] Blood Pressure Location Left Arm Left Arm Left Arm Blood Pressure Location [BP] Pulse Ox Oxygen Delivery Method 11/17/23 07:00 11/17/23 08:00 11/17/23 09:00 Temperature 98.3 F Temperature Source Temporal Pulse Rate 98 90 91 Respiratory Rate 16 16 15 Respiratory Effort Respiratory Depth Respiratory Pattern Blood Pressure 144/106 H 151/112 H Blood Pressure [BP] 168/113 H Blood Pressure Mean 118 125 Blood Pressure Mean [BP] 131 Blood Pressure Source Monitor Blood Pressure Source [BP] Monitor Blood Pressure Position Semi-Fowlers Semi-Fowlers Blood Pressure Position [BP] Semi-Fowlers Blood Pressure Location Left Arm Left Arm Blood Pressure Location [BP] Left Arm Pulse Ox 98 99 100 Oxygen Delivery Method Room Air Room Air Room Air 11/17/23 10:00 11/17/23 09:10 11/17/23 11:00 Temperature Temperature Source Pulse Rate 85 95 Respiratory Rate 19 H 20 H Respiratory Effort Respiratory Depth Respiratory Pattern Blood Pressure Blood Pressure [BP] 149/114 H 157/108 H Blood Pressure Mean Blood Pressure Mean [BP] 125 124 Blood Pressure Source Blood Pressure Source [BP] Monitor Monitor Blood Pressure Position Blood Pressure Position [BP] Semi-Fowlers Semi-Fowlers Blood Pressure Location Blood Pressure Location [BP] Left Arm Left Arm Pulse Ox 98 95 97 Oxygen Delivery Method Room Air Room Air Room Air 11/17/23 12:00 11/17/23 13:00 Temperature 98.0 F Temperature Source Temporal Pulse Rate 92 100 Respiratory Rate 16 16 Respiratory Effort Respiratory Depth Respiratory Pattern Blood Pressure 128/96 H Blood Pressure [BP] 152/113 H Blood Pressure Mean 106 Blood Pressure Mean [BP] 126 Blood Pressure Source Monitor Blood Pressure Source [BP] Monitor Blood Pressure Position Semi-Fowlers Blood Pressure Position [BP] Semi-Fowlers Blood Pressure Location Left Arm Blood Pressure Location [BP] Left Arm Pulse Ox 97 98 Oxygen Delivery Method Room Air Room Air Weight Weight: 84.5 kg Body Mass Index (BMI) 25.9 EEG Results Procedure Details EEG Procedure Details: ZOEY MAE is a 43 year old M with a past medical history of , who presents for evaluation of Electroencephalogram on DATE at TIME Physical Exam Neuro Neuro Narrative: -? General: Laying comfortably in bed; in no acute distress. -? HENT: Normal oropharynx and mucosa. Normal external appearance of ears and nose. Exophthalmos. -? Neck: Supple, no pain or tenderness -? CV:? No peripheral edema. -? Pulmonary:? Normal respiratory effort. -? Ext: No cyanosis, edema, or deformity -? Skin: No rash. Normal palpation of skin.? -? Musculoskeletal: full range of motion; no joint tenderness. Normal digits and nails by inspection. No clubbing. -? NEURO: -? Mental Status: The patient was alert and oriented to time, place, and person. Normal recent/remote memory, concentration, and general fund of adebayo sanchez. -? Language: speech is .? Naming, repetition, fluency, and comprehension intact. -? Cranial Nerves: PERRL mm/brisk. EOMI, visual quinones full, no facial asymmetry, facial sensation intact, hearing intact, tongue midline, no evidence of atrophy or fibrillations. As performed by the nurse/PATRIZIA Sternocleidomastoid and trapezius were equally strong. Soft palate raises equally, no uvular deviations -? Motor: normal bulk, tone, and strength throughout. No pronator drift or satelliting. Upper and lower extremities equal bilaterally. R L R L -? Tone: is normal and bulk is normal -? Sensation- Intact to light touch bilaterally -? Coordination: No dysmetria on [id number], finger follow finger or [id number]. -? Gait- Gait initiation was normal. Narrow base with good heel strike and stride length was observed during ambulation. Turns were in stride. Patient was able to walk normally in tandem. Romberg was normal. Lab / Micro Data 11/17/23 02:05 11/17/23 02:05 Labs: Laboratory Results - last 24 hr 11/16/23 19:50: WBC 14.2 H, RBC 5.26, Hgb 15.9, Hct 45.9, MCV 87.3, MCH 30.2, MCHC 34.6, RDW Std Deviation 39.2, RDW Coeff of Alvin 12.3, Plt Count 334, MPV 10.2, Immature Gran % (Auto) 0.400, Neut % (Auto) 88.8 H, Lymph % (Auto) 7.1 L, [place] % (Auto) 3.5, Eos % (Auto) 0.0, Baso % (Auto) 0.2, Absolute Neuts (auto) 12.6 H, Absolute Lymphs (auto) 1.00, Nucleated RBC % 0, Sodium 139, Potassium 4.0, Chloride 107, Carbon Dioxide 25.0, Anion Gap 7, BUN 20 H, Creatinine 1.25, Estim Creat Clear Calc 81.99, Est GFR (MDRD) Af Amer 81, Est GFR (MDRD) Non-Af 67, BUN/Creatinine Ratio 16.0, Glucose 142 H, Calcium 9.5, Troponin I High Sens 22, TSH 0.81 11/16/23 22:05: Troponin I High Sens 23 11/16/23 22:22: Cortisol 13.30 11/17/23 00:45: Urine Color Yellow, Urine Clarity Clear, Urine pH 7.0, Ur Specific [place] 1.010, Urine Protein 15 H, Urine Glucose (UA) Normal, Urine Ketones 15 H, Urine Occult Blood Negative, Urine Nitrite Negative, Urine Bilirubin Negative, Urine Urobilinogen Normal, Ur Leukocyte Esterase Negative, Urine RBC 0 SEEN, Urine WBC 0 SEEN, Ur Squamous Epith Cells 0 SEEN, Urine Bacteria 0 SEEN, Urine Mucus 0 SEEN 11/17/23 00:48: Urine Opiates Screen NEGATIVE, Urine Methadone Screen NEGATIVE, Ur Barbiturates Screen NEGATIVE, Ur Phencyclidine Scrn NEGATIVE, Ur Amphetamines Screen NEGATIVE, MDMA (Ecstasy) Screen NEGATIVE, U Benzodiazepines Scrn NEGATIVE, Urine Cocaine Screen NEGATIVE, U Cannabinoids Screen NEGATIVE, Ur Drug Screen Comment 11/17/23 02:05: WBC 12.9 H, RBC 4.70, Hgb 14.2, Hct 41.0, MCV 87.2, MCH 30.2, MCHC 34.6, RDW Std Deviation 39.4, RDW Coeff of Alvin 12.3, Plt Count 267, MPV 9.8, Immature Gran % (Auto) 0.200, Neut % (Auto) 68.8, Lymph % (Auto) 19.8, [place] % (Auto) 10.3 H, Eos % (Auto) 0.5, Baso % (Auto) 0.4, Absolute Neuts (auto) 8.9 H, Absolute Lymphs (auto) 2.56, Nucleated RBC % 0, Sodium 140, Potassium 3.3 L, Chloride 108 H, Carbon Dioxide 26.0, Anion Gap 6, BUN 18, Creatinine 0.99, Estim Creat Clear Calc 103.53, Est GFR (MDRD) Af Amer 106, Est GFR (MDRD) Non-Af 87, BUN/Creatinine Ratio 18.1, Glucose 125 H, Hemoglobin A1c 4.9, Calcium 8.6, Phosphorus 2.5, Magnesium 2.3, Total Bilirubin 0.90, AST 12 L, ALT 32, Alkaline Phosphatase 87, Troponin I High Sens 24, Total Protein 7.3, Albumin 3.9, Globulin 3.4, Albumin/Globulin Ratio 1.1 Rhythm Strip Rhythm Strip: Sinus Tach Rate: 112 Ectopy: None Imaging Radiology Impression Brain CT 11/16/23 19:52 IMPRESSION: Minor microangiopathic white matter changes, otherwise normal CT brain. Electronically Signed: Christie Camacho MD at 20:43 EST , Chest X-Ray 11/16/23 20:13 IMPRESSION: Trace right basilar atelectasis. Otherwise normal x-ray examination of the chest. Electronically Signed: Christie Camacho MD at 20:40 EST , Active Medications Active Medications Active Medications: Current Medications Generic Name Dose Route Start Last Admin Trade Name Freq PRN Reason Stop Dose Admin Acetaminophen 650 mg 11/17/23 01:14 11/17/23 02:05 Acetaminophen 325 Mg Tablet PO 650 mg Q6H PRN PRN Administration Pain 1-10 Or Fever>100.7 Enoxaparin Sodium 40 mg 11/17/23 10:00 11/17/23 09:03 Enoxaparin 40 Mg/0.4 Ml Syringe SC Not Given DAILY MARIE Hydralazine HCl 10 mg 11/17/23 01:15 Hydralazine 20 Mg/Ml Vial IV Q6H PRN PRN SBP >190 Protocol Hydrochlorothiazide 25 mg 11/17/23 10:00 11/17/23 09:04 Hydrochlorothiazide 25 Mg Tablet PO 25 mg DAILY MARIE Administration Protocol Sodium Chloride 250 mls @ 15 mls/hr 11/16/23 23:27 IV .[id number] PRN Additional IVPB Infusion Sodium Chloride 250 mls @ 15 mls/hr 11/16/23 23:27 IV .[id number] PRN Saline Flush Losartan Potassium 50 mg 11/17/23 06:00 11/17/23 06:32 Losartan Potassium 50 Mg Tablet PO 50 mg DAILY MARIE Administration Protocol Melatonin 3 mg 11/17/23 01:14 Melatonin 3 Mg Tablet PO QHS PRN PRN INSOMNIA Ondansetron HCl 4 mg 11/17/23 01:14 Ondansetron 4 Mg/2 Ml Vial IV Q8H PRN PRN NAUSEA/VOMITING Senna/Docusate Sodium 2 tablet 11/17/23 01:14 Senna/Docusate Sodium 1 Tablet PO BID PRN PRN Constipation Sodium Chloride 10 - 40 ml 11/16/23 23:27 0.9% Saline Lock 10 Ml Syringe IV UD PRN SALINE FLUSH
--- NOTE | 2023-11-17 18:08 | PCM.PN.HOSP ---
Reason for Visit Reason for Visit: Diagnoses Elevated white blood cell count, unspecified (11/17/23) Hypertensive urgency (11/17/23) Headache, unspecified (11/17/23) Hyperglycemia, unspecified (11/17/23) Subjective Subjective Patient was seen and examined today, his blood pressure is still elevated, I have elected to place him on a fourth medication for blood [id number] reevaluate him in the morning. Patient's MRI of the brain and MRA of the head and neck were unremarkable. Neurology recommended starting amitriptyline for the patient's headache, I went over this with him and decided to start him on it tonight to see how he tolerates the medication. I went over this with the patient and his who are in the room at the time my exam. Objective Data Objective Data Vital Signs: Vital Signs Temp Pulse Resp BP Pulse Ox O2 Del Method 98 F 90 19 H 159/109 H 98 Room Air 11/17/23 17:00 11/17/23 17:00 11/17/23 17:00 11/17/23 17:00 11/17/23 17:00 11/17/23 17:00 Oxygen Delivery Method Room Air Weight: 84.5 kg Body Mass Index (BMI) 25.9 Intake & Output: Intake and Output for Last 24 Hours 11/15/23 11/16/23 11/17/23 23:59 23:59 23:59 Intake Total 84.31 / 109.31 1281.25 / 1281.25 Balance 84.31 / 109.31 1281.25 / 1281.25 Lab / Micro Data 11/17/23 02:05 11/17/23 02:05 Labs: Laboratory Results - last 24 hr 11/16/23 19:50: WBC 14.2 H, RBC 5.26, Hgb 15.9, Hct 45.9, MCV 87.3, MCH 30.2, MCHC 34.6, RDW Std Deviation 39.2, RDW Coeff of Alvin 12.3, Plt Count 334, MPV 10.2, Immature Gran % (Auto) 0.400, Neut % (Auto) 88.8 H, Lymph % (Auto) 7.1 L, [place] % (Auto) 3.5, Eos % (Auto) 0.0, Baso % (Auto) 0.2, Absolute Neuts (auto) 12.6 H, Absolute Lymphs (auto) 1.00, Nucleated RBC % 0, Sodium 139, Potassium 4.0, Chloride 107, Carbon Dioxide 25.0, Anion Gap 7, BUN 20 H, Creatinine 1.25, Estim Creat Clear Calc 81.99, Est GFR (MDRD) Af Amer 81, Est GFR (MDRD) Non-Af 67, BUN/Creatinine Ratio 16.0, Glucose 142 H, Calcium 9.5, Troponin I High Sens 22, TSH 0.81 11/16/23 22:05: Troponin I High Sens 23 11/16/23 22:22: Cortisol 13.30 11/17/23 00:45: Urine Color Yellow, Urine Clarity Clear, Urine pH 7.0, Ur Specific [place] 1.010, Urine Protein 15 H, Urine Glucose (UA) Normal, Urine Ketones 15 H, Urine Occult Blood Negative, Urine Nitrite Negative, Urine Bilirubin Negative, Urine Urobilinogen Normal, Ur Leukocyte Esterase Negative, Urine RBC 0 SEEN, Urine WBC 0 SEEN, Ur Squamous Epith Cells 0 SEEN, Urine Bacteria 0 SEEN, Urine Mucus 0 SEEN 11/17/23 00:48: Urine Opiates Screen NEGATIVE, Urine Methadone Screen NEGATIVE, Ur Barbiturates Screen NEGATIVE, Ur Phencyclidine Scrn NEGATIVE, Ur Amphetamines Screen NEGATIVE, MDMA (Ecstasy) Screen NEGATIVE, U Benzodiazepines Scrn NEGATIVE, Urine Cocaine Screen NEGATIVE, U Cannabinoids Screen NEGATIVE, Ur Drug Screen Comment 11/17/23 02:05: WBC 12.9 H, RBC 4.70, Hgb 14.2, Hct 41.0, MCV 87.2, MCH 30.2, MCHC 34.6, RDW Std Deviation 39.4, RDW Coeff of Alvin 12.3, Plt Count 267, MPV 9.8, Immature Gran % (Auto) 0.200, Neut % (Auto) 68.8, Lymph % (Auto) 19.8, [place] % (Auto) 10.3 H, Eos % (Auto) 0.5, Baso % (Auto) 0.4, Absolute Neuts (auto) 8.9 H, Absolute Lymphs (auto) 2.56, Nucleated RBC % 0, Sodium 140, Potassium 3.3 L, Chloride 108 H, Carbon Dioxide 26.0, Anion Gap 6, BUN 18, Creatinine 0.99, Estim Creat Clear Calc 103.53, Est GFR (MDRD) Af Amer 106, Est GFR (MDRD) Non-Af 87, BUN/Creatinine Ratio 18.1, Glucose 125 H, Hemoglobin A1c 4.9, Calcium 8.6, Phosphorus 2.5, Magnesium 2.3, Total Bilirubin 0.90, AST 12 L, ALT 32, Alkaline Phosphatase 87, Troponin I High Sens 24, Total Protein 7.3, Albumin 3.9, Globulin 3.4, Albumin/Globulin Ratio 1.1 Radiography Diagnostic Testing: Radiology Impression Brain CT 11/16/23 19:52 IMPRESSION: Minor microangiopathic white matter changes, otherwise normal CT brain. Electronically Signed: Christie Camacho MD at 20:43 EST , Chest X-Ray 11/16/23 20:13 IMPRESSION: Trace right basilar atelectasis. Otherwise normal x-ray examination of the chest. Electronically Signed: Christie Camacho MD at 20:40 EST , Brain MRI 11/17/23 01:02 IMPRESSION: No evidence of acute intracranial bleed, mass or ischemia. No evidence of abnormal enhancement. Electronically Signed: Jr Chan DO at 16:47 EST , Head MRA 11/17/23 01:02 IMPRESSION: No evidence of significant steno-occlusive disease or aneurysm. Electronically Signed: Jr Chan DO at 16:48 EST , Echocardiogram 11/17/23 01:14 Interpretation Summary The estimated ejection fraction is 60 %. No evidence for diastolic dysfunction. Mild concentric left ventricular hypertrophy. Mildly dilated aortic root. Structally normal valves. Ordering Physician: Inez Burnett Referring Physician: NO PCP Performed By: Bianca Garcia, KAYLIE, RVT Rhythm Strip Rhythm Strip: Sinus Tach Rate: 112 Ectopy: None Physical Exam Const alert, oriented x3, no apparent distress, average body habitus and healthy appearing General Appearance: cooperative, well kempt and well developed Orientation / Consciousness: awake, oriented to person, oriented to place and oriented to time HEENT normocephalic and moist oral mucous membranes Eyes PERRL, EOMs intact bilaterally and conjunctivae normal Neck supple, no JVD, thyroid normal and no carotid bruits General: trachea midline Resp normal respiratory effort and clear to auscultation bilaterally Auscultation: Negative for rales, rhonchi or wheezes Cardio regular rate, regular rhythm, no murmurs, no rub and no gallops GI normal to inspection, nondistended, normoactive bowel sounds, soft to palpation, non-tender and non-distended Extremity no clubbing, cyanosis or edema Skin no rashes or lesions noted General Skin Exam: no breakdown Neuro oriented x3, CN's II-XII intact bilaterally, no focal motor deficits and no sensory deficits noted Sensorium / Orientation: awake and alert Speech: speech normal Psych affect normal Assessment & Plan Assessment/Plan (1) Hypertensive urgency: PLAN: Plan 1. Hypertensive urgency-patient will be maintained on Norvasc 10 mg daily, metoprolol 75 mg twice daily, hydrochlorothiazide 25 mg daily, and Cozaar 100 mg daily. I have elected to give him 1 dose of IV Lasix tonight. Patient will be monitored as a PCU status. #2 chronic cephalgia-etiology unclear, patient will be trialed on amitriptyline tonight Total clinical time spent by myself addressing the patient's medical issues, reviewing all of his medications, and collaborating with patient's care team-35 minutes Charges/Coding Visit Charges Inpatient E&M: 75138 Subs Hosp L2
[2023-11-17] MEDS: Metoprolol Tartrate 25 MG Tablet 75 MG PO (18:15)
[2023-11-17] MEDS: 0.9% Saline Lock 10 ML Syringe IV (18:16)
[2023-11-17] MEDS: Furosemide 20 MG/2 ML VIAL IV (18:16)
[2023-11-17] MEDS: Amitriptyline 25 MG Tablet PO (21:43)
[2023-11-18 03:10] VITALS: BP 135/96; PULSE 66; RESP 12; TEMP 36.3; O2SAT 98
[2023-11-18] MEDS: 0.9% Saline Lock 10 ML Syringe IV (03:16)
[2023-11-18 03:19] VITALS: BMI 26.2
[2023-11-18 03:30] LABS: Anion Gap 4 (5-15); BUN 28 mg/dL (7-18); BUN/Creat Ratio 24.1 RATIO (10-20); Calcium,Total 8.7 mg/dL (8.5-10.1); Chloride 103 mmol/L (98-107); Creatinine, Serum 1.16 mg/dL (0.70-1.30); EST Glomerular Filtration Rate 73 mL/min (>60); Est Glom Filt Rate - Afr Amer 88 mL/min (>60); Estimated Creatinine Clearance 88.35 ml/min; Glucose 105 mg/dL (74-106); Potassium 3.4 mmol/L (3.5-5.1); Sodium Level 135 mmol/L (136-145)
[2023-11-18 08:25] VITALS: BP 146/106; PULSE 81; RESP 15; TEMP 36.7; O2SAT 98
[2023-11-18] MEDS: Potassium Chloride Oral Tablet 20 MEQ 40 MEQ PO (08:27)
[2023-11-18 08:28] VITALS: BP 146/106; PULSE 80
[2023-11-18] MEDS: Metoprolol Tartrate 25 MG Tablet 75 MG PO (08:28)
[2023-11-18] MEDS: hydroCHLOROthiazide 25 MG Tablet PO (08:28)
[2023-11-18] MEDS: Losartan Potassium 100 MG Tablet PO (08:29)
[2023-11-18] MEDS: amLODIPine 10 MG Tablet PO (08:29)
--- NOTE | 2023-11-18 09:18 | DCINST_ITS ---
Discharge Instructions Diet Discharge Diet: No restrictions Activity Discharge Activity: Return to Normal Activity Weight Bearing Status: Full weight bearing Follow Up Care Test Results: Test results from this visit will be discussed in further detail at your follow- up appointment, if applicable. Discharge Plan Admission Admit Date/Time: 11/17/23 00:53 Primary Reason for Your Visit: Uncontrolled hypertension, cephalgia Attending Provider: Isacc Fragoso Primary Care Provider: Care Physician,No Primary Consulting Providers: Anita De La O; Evie Joyce; Lida Hall; Bereket Oconnell; Mario Vinson; LARA BROOKE; Karolina Kimble; Swati Romero; Raza Alves; Marilyn Ruano; Inez Burnett; Coleman Wilkinson; Elise Mckenzie; Tenisha Calderon; Ke Hinson; Linda Thomas; Nicholas Navarrete; Mehul Sena; Lance Guzman; Hardeep Penaloza; Jarett Enciso; Abe Falcon; Tani Alvarez; Lavelle Mendez; Tea Burnett; Sherly Tao Discharge Orders/Prescriptions Prescriptions: No Action NK Referrals / Follow Up: NOT,DEFINED [Non-Staff] - Care Physician,No Primary [Primary Care Provider] -
--- NOTE | 2023-11-18 09:18 | PCM.DC ---
Discharge Instructions Diet Discharge Diet: No restrictions Activity Discharge Activity: Return to Normal Activity Weight Bearing Status: Full weight bearing Follow Up Care Test Results: Test results from this visit will be discussed in further detail at your follow-up appointment, if applicable. Discharge Plan Admission Admit Date/Time: 11/17/23 00:53 Primary Reason for Your Visit: Uncontrolled hypertension, cephalgia Attending Provider: Isacc Fragoso Primary Care Provider: Care Physician,No Primary Consulting Providers: Anita De La O; Evie Joyce; Lida Hall; Bereket Oconnell; Mario Vinson; LARA BROOKE; Karolina Kimble; Swati Romero; Raza Alves; Marilyn Ruano; Inez Burnett; Coleman Wilkinson; Elise Mckenzie; Tenisha Calderon; Ke Hinson; Linda Thomas; Nicholas Navarrete; Mehul Sena; Lance Guzman; Hardeep Penaloza; Jarett Enciso; Abe Falcon; Tani Alvarez; Lavelle Mendez; Tea Burnett; Sherly Tao Discharge Orders/Prescriptions Prescriptions: New amitriptyline 25 mg Tablet 25 mg PO QHS Qty: 30 0RF amlodipine 10 mg Tablet 10 mg PO DAILY Qty: 30 0RF hydrochlorothiazide 25 mg Tablet 25 mg PO DAILY Qty: 30 0RF valsartan 320 mg tablet 320 mg PO DAILY Qty: 30 0RF metoprolol tartrate 50 mg tablet 50 mg PO BID Qty: 60 0RF Referrals / Follow Up: Jasmyne Farnsworth [Non-Staff] - Within 1 Month (call for an appointment) Care Physician,No Primary [Primary Care Provider] - NOT,DEFINED [Non-Staff] - Disposition Disposition (needs filled in before D/C Order can be placed): Home, Self Care
--- NOTE | 2023-11-18 09:22 | DS.PCM_ITS ---
Providers Date of Admission: 11/17/23 Date of Discharge: 11/18/23 Primary Care Physician: No Primary Care Phys Consultations 11/17/23 01:14 neuro [Consult: Tele-Neurology] Routine Consulting Provider: [facility] Reason for Consult: severe headaches EMERGENT Consult: No MD Notified: Yes Date Notified: 11/17/23 Time Notified: 08:13 Method of Notification: Answering Service Nursing Unit Staff Notify [facility] of Tele-Neurology Consult: Yes Reason For Visit: SEVERE HEADACHE/HTN URGENCY Diagnosis Discharge Diagnosis (1) Hypertensive urgency: Status: Acute Code(s): I16.0 - Hypertensive urgency Plan 1. Hypertensive urgency-patient will be maintained on Norvasc 10 mg daily, metoprolol 75 mg twice daily, hydrochlorothiazide 25 mg daily, and Cozaar 100 mg daily. I have elected to give him 1 dose of IV Lasix tonight. Patient will be monitored as a PCU status. #2 chronic cephalgia-etiology unclear, patient will be trialed on amitriptyline tonight #3 hypokalemia-patient was given oral potassium Total clinical time spent by myself addressing the patient's medical issues, reviewing all of his medications, and collaborating with patient's care team-35 minutes Medications at Discharge Home Medications amitriptyline 25 mg tablet 25 mg PO QHS #30 tabs 11/18/23 amlodipine 10 mg tablet 10 mg PO DAILY #30 tabs 11/18/23 hydrochlorothiazide 25 mg tablet 25 mg PO DAILY #30 tabs 11/18/23 metoprolol tartrate 50 mg tablet 50 mg PO BID #60 tabs 11/18/23 valsartan 320 mg tablet 320 mg PO DAILY #30 tabs 11/18/23 Hospital Course Operations None Procedures 2-D Echocardiogram Summary of Care Provided Minutes Spent on Discharge: 31 Hospital Course: This 43-year-old white male was seen in the emergency room with a chief complaint of headache, this has been going on for several years but they progressively getting worse, he states the headaches occur about twice a week, patient denies any history of hypertension and is taking no medications. Patient does not have a family physician he had been treated when he was younger for postconcussive headaches. Patient was noted to have a severely elevated blood pressure of 227/162, patient's pulse was elevated at 124, CT of the brain was performed which showed minor microangiopathic white matter changes, chest x- ray showed trace right basilar atelectasis otherwise normal chest x-ray. Patient was given IV Lopressor in the emergency room and then initially placed on nitroprusside drip, this was changed to Cardene drip when he was admitted to ICU. Following admission, patient was placed on oral blood pressure medications and underwent an MRA of the head and neck and an MRI of the brain both of which were unremarkable. Patient was seen in consultation by neurology via teleneurology, they recommended instituting amitriptyline for his headache. Patient had an echocardiogram which was unremarkable. Patient's blood pressure gradually improved during his hospitalization. On 11/18/2023, patient was seen and examined: On examination he appeared in good health and spirits. Vital signs as documented. Skin warm and dry and without overt rashes. Neck without JVD, neck was supple, trachea midline, thyroid was normal. Lungs clear bilaterally, normal air movement was noted. Heart exam notable for regular rhythm, normal sounds and absence of murmurs, rubs or gallops. Abdomen unremarkable and without evidence of organomegaly, masses, or abdominal aortic enlargement. Bowel sounds are present, abdomen is not distended. Extremities nonedematous, no cyanosis wa s noted, no clubbing was noted. Neuro: Cranial nerves II through XII are grossly intact, no focal motor deficits were noted, sensation to light touch and pinprick intact, motor exam 5/5 throughout. Psych: Patient is alert and oriented x3, he does not appear anxious or depressed, he does not appear agitated. Patient was discharged home in stable condition on 11/18/2023, he was instructed to follow-up with the PCP regarding his blood pressure and chronic headaches. Weight / BMI Weight Weight: 85.2 kg Body Mass Index (BMI) 26.2 ABG / Lab / Microbiology Data 11/17/23 02:05 11/18/23 03:10 Laboratory: Laboratory Results - last 24 hr 11/18/23 03:10: Sodium 135 L, Potassium 3.4 L, Chloride 103, Carbon Dioxide 28.0, Anion Gap 4 L, BUN 28 H, Creatinine 1.16, Estim Creat Clear Calc 88.35, Est GFR (MDRD) Af Amer 88, Est GFR (MDRD) Non-Af 73, BUN/Creatinine Ratio 24.1 H , Glucose 105, Calcium 8.7 Radiography Diagnostic Testing: Radiology Impression Brain MRI 11/17/23 01:02 IMPRESSION: No evidence of acute intracranial bleed, mass or ischemia. No evidence of abnormal enhancement. Electronically Signed: Jr Chan at 16:47 EST , Head MRA 11/17/23 01:02 IMPRESSION: No evidence of significant steno-occlusive disease or aneurysm. Electronically Signed: Jr ChanDO at 16:48 EST , Echocardiogram 11/17/23 01:14 Interpretation Summary The estimated ejection fraction is 60 %. No evidence for diastolic dysfunction. Mild concentric left ventricular hypertrophy. Mildly dilated aortic root. Structally normal valves. Ordering Physician: Inez Burnett Referring Physician: NO PCP Performed By: Bianca Garcia, KAYLIE, RVT D/C Instructions Discharge Diet: No restrictions Weight Bearing Status: Full weight bearing Meaningful Use Info Meaningful Use Diagnoses (Choose all that apply): None applicable Discharge Plan Admission Admit Date/Time: 11/17/23 00:53 Primary Reason for Your Visit: Uncontrolled hypertension, cephalgia Attending Provider: Isacc Fragoso Primary Care Provider: Care Physician,No Primary Consulting Providers: Anita De La O; Evie Joyce; Lida Hall; Bereket Oconnell; Mario Vinson; LARA BROOKE; Karolina Kimble; Swati Romero; Raza Alves; Marilyn Ruano; Inez Burnett; Coleman Wilkinson; Elise Mckenzie; Tenisha Calderon; Ke Hinson; Linda Thomas; Nicholas Navarrete; Mehul Sena; Lance Guzman; Jeannie Penaloza; Ferniedarby Cline; Abe Falcon; Tani Alvarez; Lavelle Mendez; Tea Burnett; Sherly Tao Discharge Orders/Prescriptions Prescriptions: New amitriptyline 25 mg Tablet 25 mg PO QHS Qty: 30 0RF amlodipine 10 mg Tablet 10 mg PO DAILY Qty: 30 0RF hydrochlorothiazide 25 mg Tablet 25 mg PO DAILY Qty: 30 0RF valsartan 320 mg tablet 320 mg PO DAILY Qty: 30 0RF metoprolol tartrate 50 mg tablet 50 mg PO BID Qty: 60 0RF Referrals / Follow Up: Jasmyne Farnsworth [Non-Staff] - Within 1 Month (call for an appointment) Care Physician,No Primary [Primary Care Provider] - NOT,DEFINED [Non-Staff] - Disposition Disposition (needs filled in before D/C Order can be placed): Home, Self Care Charges/Coding Visit Charges Inpatient E&M: 36419 Subs Hosp L2
[2023-11-18 09:57] VITALS: BP 139/91; PULSE 81; RESP 13; TEMP 36.6; O2SAT 99
--- NOTE | 2023-11-21 18:04 | EEG_ITS ---
EEG Results Procedure Details EEG Procedure Details: EEG Report Patient: Pee Dow Date of : 1980 Sex: Male Age: 43 years old Height: 0.0 in in Inpatient routine EEG report: Study start time: 11/17/2023 10:11 AM End Time: 11/17/2023 10:33 AM History: 43 year old admitted with headache. Indication: rule out seizure Technical Description: This is a 21-channel digital EEG recording with time- locked video and single-channel electrocardiogram. Electrodes are placed according to the 10 to 20 International System. Additional T1 and T2 electrodes were placed. The patient was monitored continuously by EEG technicians by video and EEG recording was reviewed intermittently with annotations to the EEG record made every two hours. Portions of this record are reviewed using bandpass filters of 1 to 70 Hz and sensitivity of 7mV/mm. EEG DESCRIPTION Background: This recording was obtained response. Sporadic Epileptiform Discharges: none Focal slow activity: none Rhythmic or Periodic activity: none Seizures: none Patient Events: none DIAGNOSIS Normal EEG CLINICAL INTERPRETATION This routine EEG is normal .No epileptiform activity or seizures were noted during this period of recording. EEG performed by: CHARLY Booth CHARLY Booth M.D. Neurology during awake and drowsy state. In the maximally alert state, a posterior dominant rhythm was a symmetric, reactive, well-modulated 9 Hz with a normal frequency-amplitude gradient. During drowsiness, there was attenuation of the waking background. Stage II sleep architecture was normal in morphology and distribution. Slow wave sleep was marked by appropriate bursts of diffuse delta activity. Activation Procedures: Photic stimulation and hyperventilation induced normal physiological response. Sporadic Epileptiform Discharges: none Focal slow activity: none Rhythmic or Periodic activity: none Seizures: none Patient Events: none EEG DIAGNOSIS Normal EEG CLINICAL INTERPRETATION This routine EEG is normal .No epileptiform activity or seizures were noted during this period of recording. EEG performed by: CHARLY Booth Jailene Reich GroupCHARLY M.D. Neurology
== END 2023-11-18 10:53 | disposition home or self-care (01) | DRG 103 ==
LOC: ED 21:37 → ICU 11-17 01:13
PROVIDERS: Admitting Provider Internal Medicine; Emergency Provider Emergency Medicine; Visit Provider Internal Medicine
DX: G44.209 Tension-type headache, unspecified, not intractable (principal); I16.0 Hypertensive urgency; E87.6 Hypokalemia; R73.9 Hyperglycemia, unspecified
CPT/HCPCS: 70450; 70544; 70553; 71045; 80048; 80053; 80307; 81001; 82533; 83036; 83735; 84100; 84443; 84484; 85025; 93005; 93306; 94668; 95819; 96365; 96366; 96367; 96375; 96376; 99221; 99284; A9575; J7030; J7050; A4216; G0378; J1940; J2405